=== PATIENT | male | born 1980 | race Caucasian/White ===

== ENCOUNTER 2016-09-14 08:31 | Emergency (ER) | payer OTHER ==
[~2016-09-14] VITALS: Ht 170.2 cm; Wt 73.0 kg
[~2016-09-14 08:31] MED LIST: POLY10O RIGHT EYE
[2016-09-14 08:32] VITALS: BP 177/84; PULSE 72; RESP 16; TEMP 97.6; O2SAT 99
[2016-09-14 09:06] VITALS: BP 171/91; PULSE 67; RESP 18; O2SAT 98
[2016-09-14] MEDS ORDERED: ENAL20TA PO (09:06)
[2016-09-14] MEDS ORDERED: SODIUM CHLORIDE 0.9% FLUSH 5 ML FLUSH IVF PRN (09:15)
[2016-09-14] MEDS ORDERED: PANTOPRAZOLE SODIUM 40 MG VIAL IVP ONE (09:15)
[2016-09-14] MEDS ORDERED: MORPHINE SULFATE 4 MG/ML INJ IV PUSH ONE (09:15)
[2016-09-14 09:18] VITALS: O2SAT 98
--- NOTE | 2016-09-14 09:22 | PD ---
HPI Chief Complaint: Flank/Kidney Pain Time Seen by Provider: 09:08 Travel History International Travel<30 days: No Contact w/Intl Traveler<30days: No Traveled to known affect area: No History of Present Illness HPI 36-year-old male with history of HTN here with complaint of right sided abdominal pain for the last 3-4 days. Patient pain is primarily right upper quadrant, achy, mild to moderate, and fairly constant. He is not on anything that makes it better or worse. No associated nausea, vomiting, fevers or chills. Denies any bowel or bladder/urinary symptoms. He has never previously had any abdominal surgery, pathology. PFSH Past Medical History Cardiovascular Problems: Yes (HTN) Diminished Hearing: No Hypertension: Yes Tetanus Vaccination: < 5 Years Influenza Vaccination: Yes ?: Not Past Surgical History Surgical History: No Previous Surgery Social History Alcohol Use: No Tobacco Use: Yes (1 ppd) Substance Use: No Allergies-Medications (Allergen,Severity, Reaction): Coded Allergies: No Known Allergies (Unverified , 09/14/16) Reported Meds & Prescriptions Reported Meds & Active Scripts Active Reported Enalapril (Enalapril Maleate) 20 Mg Tab 20 Mg PO DAILY Review of Systems Except as stated in HPI: all other systems reviewed are Neg Physical Exam Narrative GENERAL: Well-appearing male in no acute distress appearing older than stated age SKIN: Warm and dry. HEAD: Normocephalic. EYES: Pupils equal and round. No scleral icterus. No injection or drainage. ENT: No nasal bleeding or discharge. Mucous membranes pink and moist. Poor dentition NECK: Supple CARDIOVASCULAR: Regular rate and rhythm. No murmur appreciated. RESPIRATORY: No accessory muscle use. Clear to auscultation. Breath sounds equal bilaterally. GASTROINTESTINAL: Abdomen soft, mild tenderness to palpation in the right upper quadrant and epigastrium, no rebound or guarding, nondistended. MUSCULOSKELETAL: Normal gait NEUROLOGICAL: Awake and alert. Normal speech. PSYCHIATRIC: Appropriate mood and affect; insight and judgment normal. Data Data Last Documented VS Vital Signs Date Time Temp Pulse Resp B/P Pulse Ox O2 Delivery O2 Flow Rate FiO2 09/14/16 10:01 64 16 148/87 Room Air 09/14/16 09:18 98 09/14/16 08:32 97.6 Orders Urinalysis - C+S If Indicated (09/14/16 08:49) Complete Blood Count With Diff (09/14/16 09:12) Comprehensive Metabolic Panel (09/14/16 09:12) Lipase (09/14/16 09:12) Iv Access Insert/Monitor (09/14/16 09:12) Oximetry (09/14/16 09:12) Morphine Inj (Morphine Inj) (09/14/16 09:15) Pantoprazole Inj (Protonix Inj) (09/14/16 09:15) Sodium Chloride 0.9% Flush (Ns Flush) (09/14/16 09:15) Labs Laboratory Tests Test 09/14/16 09/14/16 08:53 09:15 Urine Color LIGHT-YELLOW Urine Turbidity CLEAR Urine pH 5.5 Urine Specific [place] 1.012 Urine Protein NEG mg/dL Urine Glucose (UA) NEG mg/dL Urine Ketones NEG mg/dL Urine Occult Blood SMALL Urine Nitrite NEG Urine Bilirubin NEG Urine Urobilinogen LESS THAN 2.0 MG/DL Urine Leukocyte Esterase NEG Urine RBC 3 /hpf Urine WBC 1 /hpf Microscopic Urinalysis Comment CULT NOT INDICATED White Blood Count 9.9 TH/MM3 Red Blood Count 4.99 MIL/MM3 Hemoglobin 13.1 GM/DL Hematocrit 40.0 % Mean Corpuscular Volume 80.1 FL Mean Corpuscular Hemoglobin 26.3 PG Mean Corpuscular Hemoglobin 32.8 % Concent Red Cell Distribution Width 17.7 % Platelet Count 335 TH/MM3 Mean Platelet Volume 8.0 FL Neutrophils (%) (Auto) 75.5 % Lymphocytes (%) (Auto) 15.4 % Monocytes (%) (Auto) 7.6 % Eosinophils (%) (Auto) 0.3 % Basophils (%) (Auto) 1.2 % Neutrophils # (Auto) 7.4 TH/MM3 Lymphocytes # (Auto) 1.5 TH/MM3 Monocytes # (Auto) 0.8 TH/MM3 Eosinophils # (Auto) 0.0 TH/MM3 Basophils # (Auto) 0.1 TH/MM3 CBC Comment DIFF FINAL Differential Comment Sodium Level 140 MEQ/L Potassium Level 3.8 MEQ/L Chloride Level 107 MEQ/L Carbon Dioxide Level 25.7 MEQ/L Anion Gap 7 MEQ/L Blood Urea Nitrogen 14 MG/DL Creatinine 0.92 MG/DL Estimat Glomerular Filtration 92 ML/MIN Rate Random Glucose 89 MG/DL Calcium Level 9.0 MG/DL Total Bilirubin 0.2 MG/DL Aspartate Amino Transf 27 U/L (AST/SGOT) Alanine Aminotransferase 33 U/L (ALT/SGPT) Alkaline Phosphatase 92 U/L Total Protein 8.0 GM/DL Albumin 3.9 GM/DL Lipase 105 U/L [facility] Medical Decision Making Medical Screen Exam Complete: Yes Emergency Medical Condition: Yes Medical Record Reviewed: Yes Differential Diagnosis 36-year-old male with history of HTN here with 3-4 days of mild to moderate achy epigastric and right upper quadrant abdominal pain. Differential includes pancreatitis, gastritis, peptic ulcer disease, hepatobiliary pathology, ureterolithiasis, pyelonephritis. Narrative Course Patient placed on monitor, IV established and blood obtained. Given 4 mg morphine, IV PPI. CBC, CMP, lipase, urinalysis obtained and unremarkable. Patient felt improved and will be discharged home with empiric treatment for gastritis. Diagnosis Primary Impression: Gastritis Qualified Code: K29.00 - Acute gastritis without hemorrhage, unspecified gastritis type Referrals: Primary Care Physician as needed Additional Instructions: Antacid as prescribed. Follow-up with primary care provider if symptoms persist and return to the ER for the warning signs discussed. Med/Other Pt SpecificInfo: Prescription(s) given Scripts Pantoprazole (Protonix)40 Mg Tab40 Mg PO DAILY #30 TAB Ref 0 Prov:Yasmine Mijares MD 09/14/16 Disposition: 01 DISCHARGE HOME Condition: Stable Yasmine Mijares MD Sep 14, 2016 09:22
[2016-09-14 09:23] LABS: BLOOD, URINE SMALL (NEG); COMMENT (UR) CULT NOT INDICATED; CULTURE IF INDICATED CULT NOT INDICATED; GLUCOSE,URINE NEG (NEG); KETONE, URINE NEG (NEG); NITRITE,URINE NEG (NEG); PH, URINE 5.5 (5.0-8.5); URINE COLOR LIGHT-YELLOW (YELLW/STRAW)
[2016-09-14 09:28] LABS: AUTOMATED NEUTROPHIL # 7.4 TH/MM3 (1.8-7.7); BASOPHIL # 0.1 TH/MM3 (0-0.2); BASOPHIL % 1.2 % (0.0-2.0); EOSINOPHIL % 0.3 % (0.0-4.0); HEMO FLAGS DIFF FINAL; LYMPH % 15.4 % (9.0-44.0); LYMPHOCYTE # 1.5 TH/MM3 (1.0-4.8); MEAN CELL VOLUME 80.1 FL (80.0-100.0); MEAN CORPUSCULAR HEMOGLOBIN 26.3 PG (27.0-34.0); MEAN CORPUSCULAR HGB CONC 32.8 % (32.0-36.0); MONO % 7.6 % (0.0-8.0); NEUT % 75.5 % (16.0-70.0); PLATELET COUNT 335 TH/MM3 (150-450); RED BLOOD COUNT 4.99 MIL/MM3 (4.50-5.90); RED CELL DISTRIBUTION WIDTH 17.7 % (11.6-17.2); WHITE BLOOD COUNT 9.9 TH/MM3 (4.0-11.0)
[2016-09-14 09:51] LABS: ANION GAP 7 MEQ/L (5-15); AST (GOT) 27 U/L (15-37); BICARBONATE 25.7 MEQ/L (21.0-32.0); BLOOD UREA NITROGEN 14 MG/DL (7-18); CHLORIDE 107 MEQ/L (98-107); GLOMERULAR FILTRATION RATE 92 ML/MIN (>89); POTASSIUM 3.8 MEQ/L (3.5-5.1); SODIUM (NA) 140 MEQ/L (136-145)
[2016-09-14 09:55] LABS: ALKALINE PHOSPHATASE 92 U/L (45-117); ALT (GPT) 33 U/L (12-78); TOTAL BILIRUBIN ADULT 0.2 MG/DL (0.2-1.0)
[2016-09-14 10:01] VITALS: BP 148/87; PULSE 64; RESP 16
[2016-09-14] MEDS ORDERED: PROT40TA PO (10:27)
== END 2016-09-14 10:43 | disposition home or self-care (01) ==
LOC: NEPA 08:31
DX: K29.00 Acute gastritis without bleeding (principal); I10 Essential (primary) hypertension; F17.200 Nicotine dependence, unspecified, uncomplicated
CPT/HCPCS: 80053; 81001; 83690; 85025; 96374; 96375; 99284; C9113; J2270

== ENCOUNTER 2017-04-24 17:29 | Emergency (ER) | payer OTHER ==
[~2017-04-24] VITALS: Ht 170.2 cm; Wt 76.0 kg
[~2017-04-24 17:29] MED LIST changes: +ENAL20TA PO; -POLY10O RIGHT EYE; +PROT40TA PO
[2017-04-24 17:39] VITALS: BP 151/82; PULSE 91; RESP 20; TEMP 97.9; O2SAT 97
[2017-04-24] MEDS ORDERED: KETOROLAC TROMETHAMINE 60 MG/2 ML (IM) VIAL IM ONE (18:30)
[2017-04-24] MEDS ORDERED: CHLO.12%30 SWISH-SPIT (18:30)
--- NOTE | 2017-04-24 18:32 | PD ---
HPI . Dentalgia Chief Complaint: Oral / Dental Pain or Problem Time Seen by Provider: 18:00 Travel History International Travel<30 days: No Contact w/Intl Traveler<30days: No Traveled to known affect area: No History of Present Illness HPI 37-year-old male patient presents emergency department for evaluation of dentalgia that started a couple days ago. Patient states he has bad teeth and gets toothaches regularly. The tooth that is currently taking at the this time is #32. Patient denies any fevers, chills, malaise, shortness breath, lightheadedness, abdominal pain, nausea, vomiting or diarrhea. There is no gingival erythema, abscesses or signs or symptoms of local infection. PFSH Past Medical History Medical History: Denies Significant Hx Cardiovascular Problems: Yes (HTN) Diminished Hearing: No Hypertension: Yes Past Surgical History Surgical History: No Previous Surgery Social History Alcohol Use: No Tobacco Use: Yes (1 ppd) Substance Use: No Allergies-Medications (Allergen,Severity, Reaction): Coded Allergies: No Known Allergies (Unverified , 04/24/17) Reported Meds & Prescriptions Reported Meds & Active Scripts Active No Active Prescriptions or Reported Medications Review of Systems Except as stated in HPI: all other systems reviewed are Neg Physical Exam Narrative GENERAL: Well-nourished, well-developed 37-year-old male patient in no acute distress. Nontoxic appearing. SKIN: Focused skin assessment warm/dry. HEAD: Normocephalic. Atraumatic. EYES: No scleral icterus. No injection or drainage. ENT: Mucosa pink and moist. No erythema or exudates. No uvular edema. No uvular , palatal, or tonsillar deviation. Airway patent. Nasal turbinates appear normal without nasal blood, purulent drainage or septal hematoma. MOUTH: Multiple teeth missing throughout the mouth. The remaining teeth have obvious decay. NECK: Supple, trachea midline. No JVD or lymphadenopathy. CARDIOVASCULAR: Regular rate and rhythm without murmurs, gallops, or rubs. RESPIRATORY: Breath sounds equal bilaterally. No accessory muscle use. GASTROINTESTINAL: Abdomen soft, non-tender, nondistended. MUSCULOSKELETAL: No cyanosis, or edema. BACK: Nontender without obvious deformity. No CVA tenderness. Data Data Last Documented VS Vital Signs Date Time Temp Pulse Resp B/P (MAP) Pulse Ox O2 Delivery O2 Flow Rate FiO2 04/24/17 17:39 97.9 91 20 151/82 (396) 97 Orders Orders Ice/Cold Pack (04/24/17 18:17) Ketorolac Inj (Toradol Inj) (04/24/17 18:30) MDM Medical Decision Making Medical Screen Exam Complete: Yes Emergency Medical Condition: Yes Differential Diagnosis Differential diagnoses include gingivitis, dentalgia, Dental cavities Narrative Course 37-year-old male patient presents emergency department for evaluation of dentalgia that started a couple days ago. Patient has history of toothaches due to his teeth that are decayed however the tooth that is currently hurting as #32. There is no signs or symptoms of gingival edema, fevers, abscesses. Patient will be given ice pack and IM injection of Toradol to help manage the pain. Based on patient's symptoms, clinical presentation, vital sign review and physical exam it is not necessary to admit the patient to the hospital or keep the patient in the emergency department for further evaluation. Patient will be discharged home with a prescription for chlorhexidine mouthwash. Diagnosis Primary Impression: Dentalgia Patient Instructions: General Instructions, Toothache (ED) Additional Instructions: Please return to emergency department if your symptoms return or worsen. Follow up with dentist. Take medications as prescribed. May use [id number] Motrin as needed for pain and inflammation. May use clove oil to area Med/Other Pt SpecificInfo: Prescription(s) given Scripts Chlorhexidine Gluconate (Mouth) Liq (Chlorhexidine Gluconate (Mouth) Liq) 0.12% Soln 15 ML SWISH-SPIT BID for 10 Days, #300 ML 0 Refills Prov: Jaqueline Everett 04/24/17 Disposition: 01 DISCHARGE HOME Condition: Stable Jaqueline Everett Apr 24, 2017 18:32
== END 2017-04-24 18:43 | disposition home or self-care (01) ==
LOC: PHEFT 17:29
DX: K08.89 Other specified disorders of teeth and supporting structures (principal); F17.210 Nicotine dependence, cigarettes, uncomplicated
CPT/HCPCS: 96372; 99284; J1885

== ENCOUNTER 2017-08-13 17:47 | Emergency (ER) | payer OTHER ==
[~2017-08-13] VITALS: Ht 170.2 cm; Wt 77.0 kg
[~2017-08-13 17:47] MED LIST changes: +CHLO.12%30 SWISH-SPIT; -ENAL20TA PO; -PROT40TA PO
[2017-08-13 18:04] VITALS: BP 179/85; PULSE 75; RESP 16; TEMP 98.3; O2SAT 99
[2017-08-13] MEDS ORDERED: AZIT250T3 PO (19:42)
[2017-08-13] MEDS ORDERED: BENZ100 PO (19:42)
--- NOTE | 2017-08-13 19:47 | PD ---
HPI Chief Complaint: Cold / Flu Symptoms Time Seen by Provider: 19:38 Travel History International Travel<30 days: No Contact w/Intl Traveler<30days: No Traveled to known affect area: No History of Present Illness HPI 37-year-old male that presents to the ED for evaluation of cold-like symptoms. Patient reports that his been having body aches and feeling tired for the past 4 days. Cough and congestion. Per patient's his daughter of 14 years old was recently diagnosed with pneumonia and started on antibiotics. He is concerned he might be veronica the same. No flu. No flu contact as far as the patient knows. Denies any other medical issues other than hypertension. No chest pain or shortness of breath. No urinary or bowel movement issues. No other medical issues. Patient states that his body aches are 4 out of 10. He has been taking OTC meds with some relief. PFSH Past Medical History Hx Anticoagulant Therapy: No Cardiovascular Problems: Yes (HTN) Diabetes: No Diminished Hearing: No Hypertension: Yes Social History Alcohol Use: No Tobacco Use: Yes (1 ppd) Substance Use: No Allergies-Medications (Allergen,Severity, Reaction): Coded Allergies: No Known Allergies (Unverified Adverse Reaction, Unknown, 08/13/17) Reported Meds & Prescriptions Reported Meds & Active Scripts Active Tessalon Perles (Benzonatate) 100 Mg Cap 100 Mg PO TID PRN Azithromycin 250 Mg Tab 250 Mg PO DIRECTED Take 2 tabs (500 mg) on day 1 then 1 tab daily x 4 days. Chlorhexidine Gluconate (Mouth) Liq (Chlorhexidine Gluconate) 0.12% Soln 15 Ml SWISH-SPIT BID 10 Days Review of Systems Except as stated in HPI: all other systems reviewed are Neg Physical Exam Narrative GENERAL: Well-nourished, well-developed patient in no apparent distress. SKIN: Warm and dry. HEAD: Atraumatic. Normocephalic. EYES: Pupils equal and round reactive to light and accommodation. No scleral icterus. No injection or drainage. ENT: No nasal bleeding or discharge. Mucous membranes pink and moist. TMs are clear with no sign of infection or perforation. No mastoid tenderness. Ear canals are intact bilaterally. No lymphadenopathy. Nostril mucosa is red and moist with clear mucus noted. No sinus tenderness to palpation noted. Tonsils are not enlarged or swollen. No ulvua Deviation. Tongue is midline. NECK: Trachea midline. No JVD. No meningeal signs noted CARDIOVASCULAR: Regular rate and rhythm. RESPIRATORY: No accessory muscle use. Clear to auscultation. Breath sounds equal bilaterally. GASTROINTESTINAL: Abdomen soft, non-tender, nondistended. Hepatic and splenic margins not palpable. MUSCULOSKELETAL: Extremities without clubbing, cyanosis, or edema. No obvious deformities. NEUROLOGICAL: Awake and alert. No obvious cranial nerve deficits. Motor grossly within normal limits. Five out of 5 muscle strength in the arms and legs. Normal speech. PSYCHIATRIC: Appropriate mood and affect; insight and judgment normal. Data Data Last Documented VS Vital Signs Date Time Temp Pulse Resp B/P (MAP) Pulse Ox O2 Delivery O2 Flow Rate FiO2 08/13/17 18:04 98.3 75 16 179/85 (116) 99 Orders Orders Ed Discharge Order (08/13/17 19:43) MDM Medical Decision Making Medical Screen Exam Complete: Yes Emergency Medical Condition: Yes Medical Record Reviewed: Yes Differential Diagnosis Bronchitis versus pneumonia versus URI versus sinusitis Narrative Course 37-year-old male that presents to the ED for evaluation of cold-like symptoms. Patient was properly examined and was found to have signs and symptoms consistent with appears to be respiratory infection. Patient's vitals and physical exam are very reassuring. No sign of acute distress. Because of patient's recent contact with daughter who was diagnosed today with pneumonia on chest x-ray I do recommend trial of antibiotics to cover for bacterial infection. Patient does not appear to have any other acute disease. Patient will be given prescription for azithromycin and Tessalon Perles. Patient agrees with plan. Happy with care. It'll for a work note but he declined at this time. I recommend OTC meds as needed and good hydration. See ED worsening symptoms. Follow with PCP. Diagnosis Primary Impression: Bronchitis Patient Instructions: General Instructions Additional Instructions: Motrin and Tylenol for pain and fever. You can use [id number] antihistamine as well as well as Mucinex as needed for runny nose and congestion. Cough drops for cough as needed. Drink plenty of fluids. Follow-up with PCP. See ED for worsening symptoms. Med/Other Pt SpecificInfo: Prescription(s) given Scripts Benzonatate (Tessalon Perles) 100 Mg Cap 100 MG PO TID Y for COUGH, #20 CAP 0 Refills Prov: Jaqueline Benitez MD 08/13/17 Azithromycin (Azithromycin) 250 Mg Tab 250 MG PO DIRECTED for Infection, #6 TAB 0 Refills Take 2 tabs (500 mg) on day 1 then 1 tab daily x 4 days. Prov: Jaqueline Benitez MD 08/13/17 Disposition: 01 DISCHARGE HOME Condition: Stable Frandy Rangel Aug 13, 2017 19:46
== END 2017-08-13 19:54 | disposition home or self-care (01) ==
LOC: PHED 17:47 → PHEFT 19:54
DX: J40 Bronchitis, not specified as acute or chronic (principal); F17.200 Nicotine dependence, unspecified, uncomplicated
CPT/HCPCS: 99283